=== PATIENT | male | born 1980 | race Caucasian/White ===

== ENCOUNTER 2024-05-17 09:02 | Emergency (ER) | payer OTHER ==
[~2024-05-17] VITALS: Ht 177.8 cm; Wt 136.1 kg
[2024-05-17] MEDS ORDERED: ACETAMINOPHEN 500 MG GEL..CAP PO STA (10:29)
== END 2024-05-17 13:17 | disposition home or self-care (01) ==
LOC: ER 09:05
DX: R53.81 Other malaise (principal); J10.1 Influenza due to other identified influenza virus with other respiratory manifestations; B34.9 Viral infection, unspecified